=== PATIENT | female | born 1980 | race African-American/Black ===

== ENCOUNTER 2024-09-06 08:42 | Emergency (ER) | payer OTHER, SELFPAY ==
[2024-09-06 08:46] VITALS: BP 132/89
[2024-09-06 09:04] VITALS: BP 131/88
[2024-09-06 09:22] VITALS: BMI 27.1
--- NOTE | 2024-09-06 09:34 | ED.GENMED ---
History of Present Illness
General
Chief Complaint: Chest Pain
Source: patient
Exam Limitations: none
Time Seen by Provider: 09/06/24 09:11
Nursing documentation reviewed up to this point in time: agreed with
History of Present Illness
History of Present Illness:
This is a 43-year-old female with no past medical history who presents emergency department today with concerns of sudden onset of chest pain in the chest radiating to the back which started 2 days ago. Patient has never had anything like this
before. Patient reports that she days ago, the pain woke her up from the sleep. She thought nothing of it first but then the pain got progressively worse and is constant and has been going on for 2 days and so she is hide reports emergency
department. Patient has no associated shortness of breath although she feels that she takes a deep breath, she notices the pain more. Patient states that anytime time she moves, the pain gets worse and she cannot find a position that she gets
comfortable in. She denies any preceding viral illness. She states that she has been feeling well up the days leading up to the onset of the symptoms. She does note early cardiac disease history in her mother who had an AK in her 50s. She does
not use tobacco products or drink alcohol. She denies abdominal pain today, nausea, vomiting, she has no personal history of cardiac disease, has no past medical history. She states that the pain does not change with eating food, and she cannot
find anything that brings her relief.
Past History
Past History
ED Past Medical History: None
ED Past Surgical History: None
Social History
Tobacco: Non-smoker
Review of Systems
Review of Systems
All Other Systems: ROS reviewed and negative except as documented in HPI and ROS
Phy Exam
Physical Exam
Physical Exam:
General: Patient is remaining very still as any movement seems to make the pain worse; patient is tearful
Skin: Warm and dry, no rashes or lesions
Head: Normocephalic, atraumatic
Eyes: Sclera non-icteric. EOMs intact.
Cardiac: Patient mildly tachycardic otherwise regular rhythm, no murmurs, no tenderness palpation of the external chest wall
Peripheral Vascular: No lower extremity swelling or edema
Pulm: Normal respiratory effort, no wheezes, rales, rhonchi
Abdomen: No abdominal tenderness to palpation, no pulsatile abdominal mass
Musculoskeletal: No upper thoracic tenderness to palpation, no paraspinal tenderness
Neuro: CN II-XII intact, no focal neurologic deficits.
Psychiatric: Appropriate mood and affect.
Scores
Heart Score for Chest Pain Patients
STEMI patient?: No
History: Slightly or Non-Suspicious
ECG: Normal
Age: </= 45 years
Risk Factors: No Risk Factors
Troponin: </= Normal Limit
Heart Score for Chest Pain Patients: 0
Heart Score Risk: 2.5% MACE over next 6 weeks
Course
Orders/Labs/Results
Orders:
Orders
09/06/24 08:48
ECG [Electrocardiogram (*1)] Urgent
Reason for Study: Chest Pain
EKG- Treatment ONCE
09/06/24 09:17
Complete Blood Count/With Diff Urgent
Comprehensive Metabolic Panel Urgent
HCG, Serum Qualitative Screen Urgent
Comment: ADD ON
Troponin I Urgent
09/06/24 09:18
D-Dimer Urgent
09/06/24 09:35
CR Chest - 2 Views Urgent
Comment:
Reason For Exam: chest pain radiating through the back
09/06/24 09:36
Ketorolac [Toradol] 15 mg IV NOW STA
09/06/24 12:06
CT Chest PE Study Urgent
Comment:
Reason For Exam: chest pain shooting through to the back
09/06/24 12:56
Add On- LAB Urgent
Tests Added?: beta hcg qual
09/06/24 12:58
Test Result ONCE
09/06/24 15:06
Ketorolac [Toradol] 15 mg IV NOW STA
Abnormal Lab Results
09/06/24 09/06/24
09:17 09:18
MPV 10.5 H fL
(7.4-10.4)
D-Dimer 0.96 H ug/mlFEU
(0.00-0.50)
BUN 6 L mg/dl
(7-17)
Glucose 111 H mg/dl
(70-99)
09/06/24 09:17
09/06/24 09:17
Vital Signs
Initial and Last Documented VS:
Initial Vital Signs
Temp Pulse Resp BP Pulse Ox
97.9 F 85 16 132/89 100
09/06/24 08:46 09/06/24 08:46 09/06/24 08:46 09/06/24 08:46 09/06/24 08:46
Last Documented Vital Signs
Temp Pulse Resp BP Pulse Ox
97.9 F 70 13 110/81 96
09/06/24 08:46 09/06/24 12:30 09/06/24 12:30 09/06/24 12:24 09/06/24 15:26
MDM/Problems Addressed
Differential Diagnosis Includes:
ACS, PE, GERD, costochondritis, pneumothorax
MDM/Problems Addressed:
43-year-old female with no past medical presents to the emergency department today with concern for onset of chest pain that rates to the chest. She woke up with this pain 2 days ago. As being grossly worse. Have a family history of early cardiac
disease. Will give dose of Toradol to see if she responds, will send for x-ray of the chest, troponin. Will reassess. Case, workup, and treatment plan reviewed with my attending physician.
On reevaluation, patient is feeling better and now notes that the pain is dull. She said the Toradol significantly helped her symptoms. She is no longer tearful. However the pain still linger. Patient's initial troponin is undetectable,
considering patient pain has been persistent for the past 2 days, no indication to repeat this at this time. Her EKG shows no concerning ischemic changes. She was sent for the CT of the chest which showed no evidence of gonzalez embolism or
pneumothorax, no evidence of ammonia. Considering patient's symptoms are very positional and respond to anti-inflammatory patient, will recommend that patient call anti-inflammatories for the next few days. Highly doubt cardiac or pulmonary
etiology to patient's symptoms. In light of patient's early family cardiac history, I did recommend follow-up with a instructional facilitator to have a full evaluation as well as testing. Patient expressed understanding. Precautions discussed, patient stable
for discharge.
Chronic conditions affecting care:
n/a
Acute Exacerbation and/or Progression of Chronic Illness:
n/a
*Pulse Oximetry
Patient hypoxic: no
*Critical Care Note
Total Time (30-74mins, 75-104mins- exclusive of procedures): Not Applicable
Data Reviewed
Review of Other/Old Records Reveals: Records (Reviewed ER physician documentation from 07/20/2021, patient for pelvic pain, she was empirically doxycycline)
Source: patient and records
Prescriptions/Medications Considered But Not Given:
n/a
ED Attending Note
-
Portions of this chart may have been created with voice recognition software.� Occasional wrong word or��sound alike� substitutions may have occurred due to the inherent limitations of voice recognition software.
Discharge Plan
Departure
Patient Disposition: Home (Routine Discharge)
Date of Disposition: 09/06/24
Time of Disposition: 15:07
Patient with high blood pressure during this ER visit?: Yes
Condition: Good
Discharge Problem:
Chest pain
Instructions: BLOOD PRESSURE, Chest Pain
Prescriptions:
No Action
amoxicillin 875 MG tablet
875 mg PO BID
ibuprofen 600 MG tablet
600 mg PO Q6HPRN PRN (Reason: pain)
tramadol 50 MG tablet
50 mg PO Q6HPRN PRN (Reason: Pain) Qty: 12 0RF
doxycycline hyclate 100 MG capsule
100 mg PO Q12 Qty: 14 0RF
Referrals:
Dylon Biswas MD [Active] - Call in 1-3 days for appt
UNKNOWN - PT DOES,NOT KNOW [Family Provider] -
Activity Restrictions/Additional Instructions:
Your EKG and troponin were normal. Your CAT scan of your chest did not show any evidence of pneumonia, pneumothorax, pleural effusion, or pulmonary embolism.
Considering your symptoms change with event and relief with Toradol, it is possible that your symptoms may be musculoskeletal in nature. I recommend taking ibuprofen as needed for the next 3 days and following a primary care provider.
In light of your history of early cardiac disease, I recommend evaluation by tool crib supervisor. We have attached a number for you to schedule an appointment.
PLEASE RETURN EMERGENCY DEPARTMENT TO EXPERIENCE ACUTE PAIN, SHORTNESS OF BREATH, SYNCOPAL EPISODES, LIGHTHEADEDNESS, WEAKNESS IN YOUR EXTREMITIES, SEIZURE ACTIVITY, VISUAL LOSS OR VISUAL CHANGES, OR ANY OTHER SIGNS OR SIGNS CONCERNING
Interventions
Interventions:
*Risk Screen - Suicide Last Done: 09/06/24 09:26
*General Assessment Last Done: 09/06/24 09:26
*Neglect/Abuse Screening Last Done: 09/06/24 09:26
ED- Fall Risk Assessment Last Done: 09/06/24 09:31
*ED COVID-19 Vaccine History Last Done: 09/06/24 09:26
*Nursing Disposition Last Done: 09/06/24 15:26
ED- Cardiac Assessment Last Done: 09/06/24 09:30
Discharge Date and Time
Discharge Date/Time: 09/06/24 15:28
Print Language: [id number]
[2024-09-06 09:35] LABS: % Basophils 0.3 % (0-2); % Eosinophils 0.9 % (0-6); % Immature Granulocytes 0.5 % (0-0.5); % Lymphocytes 26.2 % (20.5-51.1); % Monocytes 5.5 % (1.7-9.3); % Neutrophils 66.6 % (42.2-75.2); Absolute Eosinophils 0.1 10^3/uL (0-0.7); Absolute Monocytes 0.4 10^3/uL (0.1-0.6); Absolute Neutrophils 5.2 10^3/uL (1.4-6.5); Hematocrit 43.2 % (37.0-47.0); Hemoglobin 14.3 g/dL (12.0-16.0); Mean Corp Hgb Conc. 33.1 g/dL (33.0-37.0); Mean Corpuscular Hgb 30.2 pg (27.0-31.0); Mean Corpuscular Volume 91.3 fL (81.0-99.0); Mean Platelet Volume 10.5 fL (7.4-10.4); Nucleated Red Blood Cells % 0 %; Platelet Count 269 10^3/uL (130-400); Red Blood Cell Count 4.73 10^6/uL (4.20-5.40); White Blood Cell Count 7.8 10^3/uL (4.8-10.8)
[2024-09-06] MEDS: TORADOL 15 MG IV ×2 (09:39→15:16)
[2024-09-06 09:48] LABS: ALT (SGPT) 35 U/L (0-35); AST (SGOT) 28 U/L (14-36); Albumin 4.6 g/dl (3.5-5.0); Alkaline Phosphatase 77 U/L (38-126); Blood Urea Nitrogen 6 mg/dl (7-17); Calcium 9.5 mg/dl (8.4-10.2); Carbon Dioxide 24 mmol/L (22-30); Estimated Creatinine Clearance 91 ml/min; Glucose 111 mg/dl (70-99); Sodium 136 mmol/L (135-145); Total Bilirubin 0.5 mg/dl (0.2-1.3); Total Protein 7.7 g/dl (6.3-8.2); eGFR > 60.00
[2024-09-06 09:59] LABS: Troponin I < 0.012 ng/ml
[2024-09-06 10:09] LABS: D-Dimer 0.96 ug/mlFEU (0.00-0.50)
[2024-09-06 10:25] LABS: Chloride 102 mmol/L (98-107)
[2024-09-06 12:24] VITALS: BP 110/81
[2024-09-06 14:24] LABS: HCG, Serum Qualitative Screen Negative
== END 2024-09-06 15:28 | disposition home or self-care (01) ==
LOC: EMR 08:42
PROVIDERS: Physician Assistant; EMERGENCY PHYSICIAN Emergency Medicine
DX: R07.89 Other chest pain (principal); Z82.49 Family history of ischemic heart disease and other diseases of the circulatory system
CPT/HCPCS: 99284; 96374; 96376; 71046; 71275; 80053; 84484; 84703; 85025; 85379; 93005; Q9967